=== PATIENT | female | born 1965 | race Two or more races ===

== ENCOUNTER 2022-01-20 10:07 | Day surgery (SDC) | payer OTHER | END 2022-01-20 15:30 | disposition home or self-care (01) | LOC: AMB-ENDOS 10:07 | PROVIDERS: ATTEND Colon & Rectal Surgery | DX: K64.8 Other hemorrhoids (principal); K62.5 Hemorrhage of anus and rectum; Z20.822 Contact with and (suspected) exposure to COVID-19 ==